=== PATIENT | female | born 1960 | race Caucasian/White ===

== ENCOUNTER → 2016-12-15 | Outpatient (CLI) | payer MEDICAID | LOC: BRMIMAGING 13:26 | PROVIDERS: ATTEND Internal Medicine | DX: Z13.820 Encounter for screening for osteoporosis (principal); M85.80 Other specified disorders of bone density and structure, unspecified site; Z78.0 Asymptomatic menopausal state; Z82.62 Family history of osteoporosis ==

== ENCOUNTER → 2017-01-03 | Outpatient (CLI) | payer MEDICAID | LOC: BRMIMAGING 10:55 | PROVIDERS: ATTEND Internal Medicine | DX: N63 Unspecified lump in breast (principal); N64.89 Other specified disorders of breast | CPT/HCPCS: 76641-PO; G0204 ==

== ENCOUNTER → 2017-04-12 | Outpatient (CLI) | payer MEDICAID | LOC: FIMAGING 08:36 | PROVIDERS: ATTEND Internal Medicine | DX: R93.421 Abnormal radiologic findings on diagnostic imaging of right kidney (principal); N83.201 Unspecified ovarian cyst, right side; Z87.448 Personal history of other diseases of urinary system; Z87.42 Personal history of other diseases of the female genital tract; Z78.0 Asymptomatic menopausal state ==

== ENCOUNTER → 2017-04-21 | Outpatient (CLI) | payer MEDICAID | LOC: FIMAGING 12:33 | PROVIDERS: ATTEND Internal Medicine | DX: R10.9 Unspecified abdominal pain (principal) ==